=== PATIENT | male | born 1975 | race Caucasian/White ===

== ENCOUNTER → 2017-02-22 | Outpatient (CLI) | payer OTHER ==
--- NOTE | 2017-02-22 10:56 | KCIC ---
Limited abdomen ultrasound HISTORY: Elevated liver function tests, fatty liver. COMPARISON: None FINDINGS: Multiple sonographic images of the abdomen are submitted. Pancreas is not well-visualized due to bowel gas. Gallbladder is present without intraluminal abnormality, wall thickening, pericholecystic fluid. There is diffuse coarsening of the echotexture of the liver, no focal hepatic mass demonstrated. Right lobe of the liver measured 18 cm longitudinal. No free fluid is demonstrated. Right kidney measured 12.8 x 6.5 x 5.6 cm, no hydronephrosis. Inferior vena cava is not well visualized due to bowel gas. Common bile duct is not significantly dilated, estimated at 0.1 cm. IMPRESSION: 1. There is diffuse hepatic steatosis. There is mild hepatomegaly. Electronically signed by: Scott Wolfe MD (02/22/2017 10:53 AM)
== END | disposition home or self-care (01) ==
LOC: KCIC US 08:51
PROVIDERS: ATTEND Family Medicine
DX: R79.89 Other specified abnormal findings of blood chemistry (principal); K76.0 Fatty (change of) liver, not elsewhere classified; R16.0 Hepatomegaly, not elsewhere classified
CPT/HCPCS: 76705